=== PATIENT | female | born 1975 | race Caucasian/White ===

== ENCOUNTER 2019-01-05 03:37 | Emergency (ER) | payer OTHER ==
[~2019-01-05] VITALS: Ht 170.2 cm; Wt 109.0 kg
[~2019-01-05 03:37] MED LIST: ASPI-482 PO; BUPR300T4 PO; CEPH500C PO; OLME1TAB25 PO
[2019-01-05] MEDS ORDERED: ASPIRIN 81 MG TAB.CHEW ONE (03:59)
[2019-01-05] MEDS ORDERED: IV NORMAL SALINE 1,000ML 1,000 ML IV SCH (04:00)
[2019-01-05] MEDS ORDERED: ASPIRIN 81 MG TAB.CHEW PO ONE (04:00)
[2019-01-05] MEDS: NITROGLYCERIN SUBLINGUAL 0.4 MG BOTTLE OF 25. SL PRN ×2 (04:03→04:29)
--- NOTE | 2019-01-05 04:13 | PHYS DOC ---
Past History Past Medical History: Hypertension (GAUTAM SCHROEDER Jr., DO) Past Surgical History: Appendectomy, Cholecystectomy, Gastric Bypass (GAUTAM SCHROEDER Jr., DO) Alcohol Use: None Drug Use: None (GAUTAM SCHROEDER Jr., DO) Adult General Chief Complaint Chief Complaint: CHEST PAIN HPI HPI Patient is a 43-year-old female who presents with complaint of chest pain that started a couple of days ago and has been intermittent since. She states that she was having some nausea earlier in the day and then she was woken up with the chest pain about 2 hours ago. She describes the pain as being heaviness on the left side of her chest and states that she has some radiation of the pain to the right side of her chest up into her left shoulder and into her back. She rates the pain at an 6 out of 10. And states that at its worse it was about an 8 out of 10. Currently she denies any nausea. She denies any diaphoresis. She denies shortness of breath. (GAUTAM SCHROEDER Jr., DO) Review of Systems Review of Systems Constitutional: Denies fever or chills [] Respiratory: Denies cough or shortness of breath [] Cardiovascular: No additional information not addressed in HPI [] GI: Denies abdominal pain. Admits to nausea without vomiting. [] Musculoskeletal: Admits to mid back pain [] All other systems were reviewed and found to be within normal limits, except as documented in this note. (GAUTAM SCHROEDER Jr., DO) Current Medications Current Medications Current Medications Medications (Trade) Dose Ordered Sig/[place] Start Time Stop Time Status Last Admin Dose Admin Aspirin (Children'S Aspirin) 81 mg STK-MED ONCE 01/05/19 03:59 01/05/19 04:00 DC Nitroglycerin (Nitrostat) 0.4 mg PRN Q5MIN PRN 01/05/19 04:00 01/06/19 03:59 01/05/19 04:03 0.4 MG Sodium Chloride 1,000 ml @ 1,000 mls/hr Q1H 01/05/19 04:00 01/05/19 04:59 01/05/19 04:03 1,000 MLS/HR (GAUTAM SCHROEDER Jr., DO) Allergies Allergies Allergies Coded Allergies Type Severity Reaction Last Updated Verified morphine Allergy Intermediate itching 8/23/15 Yes (GAUTAM SCHROEDER Jr., DO) Physical Exam Physical Exam Constitutional: Well developed, well nourished, no acute distress, non-toxic appearance. [] HENT: Normocephalic, atraumatic, bilateral external ears normal, oropharynx moist, no oral exudates, nose normal. [] Eyes: PERRLA, EOMI, conjunctiva normal, no discharge. [] Neck: Normal range of motion, no tenderness, supple, no stridor. [] Cardiovascular:Heart rate regular rhythm, no murmur [] Lungs & Thorax: Bilateral breath sounds clear to auscultation [] Abdomen: Bowel sounds normal, soft, no tenderness. [] Skin: Warm, dry, no erythema, no rash. [] Extremities: No tenderness, no cyanosis, no clubbing, ROM intact, no edema. [] Neurologic: Alert and oriented X 3, no focal deficits noted. [] (GAUTAM SCHROEDER Jr., DO) Current Patient Data Vital Signs Vital Signs Date Time Temp Pulse Resp B/P (MAP) Pulse Ox O2 Delivery O2 Flow Rate FiO2 01/05/19 04:03 78 132/81 01/05/19 03:37 98.6 18 100 Room Air (GAUTAM SCHROEDER Jr., DO) EKG EKG EKG demonstrates normal sinus rhythm with no significant ST segment abnormalities.[] (GAUTAM SCHROEDER Jr., DO) Radiology/Procedures Radiology/Procedures [] (GAUTAM SCHROEDER Jr., DO) Course & Med Decision Making Course & Med Decision Making Pertinent Labs and Imaging studies reviewed. (See chart for details) [] (GAUTAM SCHROEDER Jr., DO) Course & Med Decision Making Received patient at 6 AM. Agree with previous H&P. Patient's second set of cardiac enzymes is negative Medical decision making: There is no evidence of this being an acute coronary syndrome, no STEMI based on the EKG, no pneumonia, pneumothorax, nor pulmonary embolism based on chest imaging. No evidence of thoracic aneurysm dissection nor esophageal rupture based on history and imaging. Discussed findings and plan with the patient who voiced understanding. All questions were answered. We will try stomach acid lowering medicine in the short-term to see if that is the etiology of this discomfort and patient will follow up with Navid Gunn for further evaluation, especially of the d-dimer. Do not think that there is a DVT given that the patient has no extremity discomfort or swelling. (NILESH HERNANDEZ DO) Dragon Disclaimer Dragon Disclaimer This electronic medical record was generated, in whole or in part, using a voice recognition dictation system. (GAUTAM SCHROEDER Jr. DO) Departure Departure: Impression: Primary Impression: Chest pain Additional Impression: Elevated d-dimer Disposition: HOME, SELF-CARE Condition: IMPROVED Referrals: PETE GUNN (PCP) Follow-up in 2 days Patient Instructions: Chest Pain (Nonspecific) Additional Instructions: Follow-up with your primary care physician in 2 days. Call today to set up the follow-up appointment. Return to the ER if worsening discomfort or any other concerns. Scripts Lansoprazole (PREVACID) 15 Mg Capsule.dr 1 CAP PO DAILY for chest/stomach discomfort, #30 CAP Prov: NILESH HERNANDEZ DO 01/05/19 Problem Qualifiers Primary Impression: Chest pain Chest pain type: unspecified Qualified Codes: R07.9 - Chest pain, unspecified GAUTAM SCHROEDER Jr., DO Jan 05, 2019 04:13 NILESH HERNANDEZ DO Jan 05, 2019 06:41
[2019-01-05 04:16] LABS: BASO # 0.1 x10^3/uL (0.0-0.2); BASO % 1 % (0-3); EOS # 0.1 x10^3/uL (0.0-0.7); EOS % 1 % (0-3); HEMATOCRIT 39.9 % (36.0-47.0); HEMOGLOBIN 13.1 g/dL (12.0-15.5); LYMPH # 2.2 x10^3/uL (1.0-4.8); LYMPH % 18 % (24-48); MEAN CORPUSCULAR HEMOGLOBIN 28 pg (25-35); MEAN CORPUSCULAR HGB CONC 33 g/dL (31-37); MEAN CORPUSCULAR VOLUME 86 fL (79-100); MONO # 0.7 x10^3/uL (0.0-1.1); MONO % 6 % (0-9); NEUT # 8.9 x10^3uL (1.8-7.7); NEUT % 74 % (31-73); PLATELET COUNT 304 x10^3/uL (140-400); RED BLOOD COUNT 4.63 x10^6/uL (3.50-5.40); RED CELL DISTRIBUTION WIDTH 14.1 % (11.5-14.5); WHITE BLOOD COUNT 12.1 x10^3/uL (4.0-11.0)
[2019-01-05 04:34] LABS: ALBUMIN 2.9 g/dL (3.4-5.0); ALBUMIN/GLOBULIN RATIO 0.7 (1.0-1.7); CALCIUM 8.5 mg/dL (8.5-10.1); CREATININE 0.7 mg/dL (0.6-1.0); GFR 90.9; MAGNESIUM 1.7 mg/dL (1.8-2.4); POTASSIUM 3.6 mmol/L (3.5-5.1); TOTAL BILIRUBIN 0.3 mg/dL (0.2-1.0); TOTAL PROTEIN 7.3 g/dL (6.4-8.2)
[2019-01-05] MEDS ORDERED: CONTRAST GIVEN MC PRN (05:15)
[2019-01-05] MEDS ORDERED: IOHEXOL 350 MG/ML 100 ML VIAL. IV ONE (05:15)
--- NOTE | 2019-01-05 05:55 | RAD ---
EXAM: CT chest with contrast - pulmonary embolus protocol CLINICAL HISTORY: chest pain and pressure. COMPARISON: Chest radiograph 01/05/2019. TECHNIQUE: CT of the chest following the administration of intravenous contrast during the pulmonary arterial phase. Axial, coronal and sagittal reformatted images were generated including MIP images. ---PQRS compliance statement - One or more of the following individualized dose reduction techniques were utilized for this study: 1. Automated exposure control 2. Adjustment of the mA and/or kV according to patient size 3. Use of iterative reconstruction technique--- FINDINGS: CHEST: Diagnostic quality: Adequate. Pulmonary emboli: None seen Right heart strain: None Pulmonary arteries: Normal in caliber. The heart is not enlarged. No pericardial effusion. No pleural effusion or pneumothorax. No lobar consolidation. No suspicious lung nodule or mass is seen. No mediastinal or hilar lymphadenopathy. No axillary lymphadenopathy. Small hiatal hernia. Visualized Upper abdomen: Trace abdominal ascites. Cholecystectomy clips are seen. Mild fat infiltration is seen about the duodenum, possibly duodenitis. Bones: Rightward curvature of the thoracic spine apex T8 IMPRESSION: 1. No evidence for acute pulmonary embolus. 2. No lobar consolidation. 3. Mild fat infiltration is only partially seen about the duodenum, possibly duodenitis 4. Trace abdominal ascites. Electronically signed by: Berto Sarabia MD (01/05/2019 5:52 AM) [facility]
--- NOTE | 2019-01-05 06:15 | EKG ---
[address] [address] Test Date: 2019-01-05 Test Time: 03:45:21 Pat Name: SHABBIR PRIEST Department: Room: Gender: F [place]: : 1975 Requested By: GAUTAM SCHROEDER Order Number: [id number] Reading MD: Papo Gallardo MD Measurements Intervals [place] Rate: 81 P: 64 [place]: 196 QRS: 4 QRSD: 88 T: 28 QT: 394 QTc: 458 Interpretive Statements SINUS RHYTHM Electronically Signed On 01-05-2019 15:36:30 CDT by Papo Gallardo MD
[2019-01-05] MEDS ORDERED: LANS15CA78 PO (06:41)
[2019-01-05 06:45] VITALS: BP 107/59
--- NOTE | 2019-01-05 08:20 | RAD ---
CHEST AP ONLY Clinical indications: CHEST PAIN COMPARISON: None available. Findings: There is a left perihilar lung nodule measuring 12 mm in size. This represents a pulmonary vessel since no lung nodule or lung mass is seen on chest CTA performed today. No lung consolidation or pleural effusion or pulmonary edema or pneumothorax is seen. The heart size, pulmonary vasculature, mediastinum and both kateryna are unremarkable. Scoliosis is seen. Impression: No acute radiographic abnormality is seen. Electronically signed by: Bruno Solo MD (01/05/2019 8:17 AM) [facility]
== END 2019-01-05 06:45 | disposition home or self-care (01) ==
LOC: ER 03:37
DX: R07.89 Other chest pain (principal); R79.1 Abnormal coagulation profile; I10 Essential (primary) hypertension; Z88.5 Allergy status to narcotic agent; Z98.84 Bariatric surgery status
CPT/HCPCS: 36415; 71045; 71275; 80053; 83690; 83735; 83880; 84484; 85025; 85379; 93005; 99284; Q9967; J7030

== ENCOUNTER → 2019-01-06 | Outpatient (CLI) | payer OTHER ==
[2019-01-05 06:45] VITALS: BP 107/59
[~2019-01-06] MED LIST changes: +CYCL-331 PO; +LANS15CA78 PO
--- NOTE | 2019-01-06 13:01 | RAD ---
EXAM: Abdomen acute complete. HISTORY: Pain. COMPARISON: None. FINDINGS: A frontal view of the chest and frontal upright and supine views of the abdomen are obtained. There is no infiltrate, pleural effusion or pneumothorax. The heart is normal in size. There is gas within nondistended loops of bowel throughout the abdomen. There is no transition point to suggest obstruction. There is no free air. There is thoracolumbar scoliosis. There are cholecystectomy clips. IMPRESSION: 1. No acute pulmonary finding. 2. Nonobstructive bowel gas pattern. Electronically signed by: Tara Montano MD (01/06/2019 12:58 PM) [place] [id number]
== END | disposition home or self-care (01) ==
LOC: PMG 12:08
PROVIDERS: ATTEND Physician Assistant Medical
DX: R10.9 Unspecified abdominal pain (principal)
CPT/HCPCS: 74022

== ENCOUNTER 2019-03-10 17:40 | Emergency (ER) | payer OTHER ==
[~2019-03-10] VITALS: Ht 170.2 cm; Wt 113.4 kg
[~2019-03-10 17:40] MED LIST changes: -CYCL-331 PO
[2019-03-10] MEDS ORDERED: IBUPROFEN 600 MG TABLET. PO ONE (18:45)
[2019-03-10] MEDS ORDERED: ACETAMINOPHEN 500 MG TABLET PO ONE (18:45)
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
[2019-03-10] MEDS ORDERED: CYCL-331 PO (19:20)
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
[2019-03-10 19:31] VITALS: BP 157/90
== END 2019-03-10 19:31 | disposition home or self-care (01) ==
LOC: ER 17:40
DX: S80.12XA Contusion of left lower leg, initial encounter (principal); S70.11XA Contusion of right thigh, initial encounter; S20.211A Contusion of right front wall of thorax, initial encounter; I10 Essential (primary) hypertension; Z88.5 Allergy status to narcotic agent; Z98.84 Bariatric surgery status; V49.49XA Driver injured in collision with other motor vehicles in traffic accident, initial encounter; Y93.I9 Activity, other involving external motion; Y92.488 Other paved roadways as the place of occurrence of the external cause; Y99.8 Other external cause status
CPT/HCPCS: 73590; 99284

== ENCOUNTER → 2019-03-27 | Outpatient (CLI) | payer OTHER ==
[2019-03-10 19:31] VITALS: BP 157/90
[~2019-03-27] MED LIST changes: +CYCL-331 PO
--- NOTE | 2019-03-27 15:23 | RAD ---
Right ankle, 2 views, 03/27/2019: HISTORY: Ankle pain No fracture or dislocation is identified. A small sclerotic focus in the distal tibia is compatible with a benign bone island. IMPRESSION: No acute bony abnormality is detected. Right foot, 3 views, 03/27/2019: There is mild spurring at the mid foot level. A large inferior calcaneal spur is present. No fracture or dislocation is identified. There is mild subcutaneous edema. IMPRESSION: 1. Mild degenerative change at the mid foot level. 2. No acute bony abnormality is detected. Electronically signed by: Joseph Franco MD (03/27/2019 3:20 PM) [facility] [place]
== END | disposition home or self-care (01) ==
LOC: DXRAD 10:50
PROVIDERS: ATTEND Registered Nurse
DX: M25.571 Pain in right ankle and joints of right foot (principal); M79.671 Pain in right foot
CPT/HCPCS: 73600; 73620

== ENCOUNTER → 2019-06-12 | Outpatient (CLI) | payer OTHER ==
--- NOTE | 2019-06-12 13:57 | RAD ---
EXAM: Thoracic spine, 3 views; lumbar spine, 3 views. HISTORY: Pain. COMPARISON: None. FINDINGS: Thoracic spine: 3 views of the thoracic spine are obtained. There is S-shaped thoracolumbar scoliosis with dextrocurvature centered at the mid thoracic levels. There is no significant thoracic listhesis. The vertebral bodies are normal in height and the disc spaces are preserved. Lumbar spine: 3 views of the lumbar spine are obtained. There is thoracic levoscoliosis centered at L2. There is degenerative endplate remodeling and osteophytosis at multiple levels. There is minimal retrolisthesis of L3 on L4. There are multiple endplate Schmorl's nodes. There is facet arthropathy predominantly at the lumbosacral junction. IMPRESSION: 1. No acute osseous finding. 2. Multilevel degenerative change involving the lumbar spine, described above. 3. Thoracolumbar scoliosis. Electronically signed by: Tara Montano MD (06/12/2019 1:54 PM) [id number]
== END | disposition home or self-care (01) ==
LOC: PMG 09:14
PROVIDERS: ATTEND Registered Nurse
DX: M47.816 Spondylosis without myelopathy or radiculopathy, lumbar region (principal); M41.85 Other forms of scoliosis, thoracolumbar region; M46.86 Other specified inflammatory spondylopathies, lumbar region
CPT/HCPCS: 72072; 72100

== ENCOUNTER → 2020-07-27 | Outpatient (CLI) | payer OTHER ==
[~2020-07-27] MED LIST changes: -BUPR300T4 PO; +BUPR300T92 PO
--- NOTE | 2020-07-29 11:32 | RAD ---
DATE: 07/27/2020 1:45 PM EXAM: MAMMO INDIO SCREENING BILATERAL HISTORY: Screening COMPARISON: 03/22/2015 Bilateral CC and MLO views of the breasts were performed. Bilateral breast tomosynthesis was performed in CC and MLO projections. This study was interpreted with the benefit of Computerized Aided Detection (CAD). FINDINGS: Breast Density: SCATTERED The breast parenchyma shows scattered fibroglandular densities. Breast parenchyma level B No suspicious masses, microcalcifications or architectural distortion is present to suggest malignancy in either breast. The visualized axillae are unremarkable. IMPRESSION: No mammographic evidence of malignancy. BI-RADS CATEGORY: 1 NEGATIVE RECOMMENDED FOLLOW-UP: 12M 12 MONTH FOLLOW-UP Annual screening mammography is recommended, unless clinically indicated sooner based on symptoms or change in physical exam. PQRS compliance statement: Patient information was entered into a reminder system with a target due date for the next mammogram. Mammography is a sensitive method for finding small breast cancers, but it does not detect them all and is not a substitute for careful clinical examination. A negative mammogram does not negate a clinically suspicious finding and should not result in delay in biopsying a clinically suspicious abnormality. "Our facility is accredited by the [employer] Mammography Program."
== END ==
LOC: MAMMO 13:32
PROVIDERS: ATTEND Physician Assistant Medical
DX: Z12.31 Encounter for screening mammogram for malignant neoplasm of breast (principal)
CPT/HCPCS: 77063; 77067

== ENCOUNTER → 2021-06-02 | Outpatient (CLI) | payer OTHER ==
[~2021-06-02] MED LIST changes: +LANS15CA73 PO; -LANS15CA78 PO
--- NOTE | 2021-06-02 12:38 | RAD ---
AP and Lateral Views of the Chest 06/02/2021 11:15 AM Indication: Reason: HYPERTENSION / Spl. Instructions: / History: Comparison: Chest radiograph January 05, 2019 Findings: There is no focal consolidation or infiltrate identified. The cardiomediastinal silhouette is within normal limits. There is no evidence of pneumothorax or pleural effusion. No acute osseous a bnormalities are identified. Dextrocurvature of the thoracic spine noted. Impression: No evidence of acute cardiopulmonary process. Electronically signed by: Abdi Lopez MD (06/02/2021 12:35 PM) [id number]
== END ==
LOC: RAD 11:14
PROVIDERS: ATTEND Physician Assistant Medical
DX: I10 Essential (primary) hypertension (principal)
CPT/HCPCS: 71046